=== PATIENT | male | born 1945 | race Caucasian/White ===

== ENCOUNTER 2024-12-01 10:23 | Emergency (ER) | payer OTHER, SELFPAY ==
[2024-12-01] VITALS (8 sets, daily range): BP systolic 148–197; BP diastolic 80–92; BMI 24.6
[2024-12-01 12:30] LABS: Hematocrit 44.5 % (39.0-52.0); Hemoglobin 15.3 g/dL (13.0-18.0); Mean Corp Hgb Conc. 34.4 g/dL (33.0-37.0); Mean Corpuscular Volume 92.5 fL (80.0-94.0); Nucleated Red Blood Cells % 0 % (-); Platelet Count 274 10^3/uL (130-400); Red Cell Dist. Width 12.9 % (11.5-14.5)
[2024-12-01 12:43] LABS: ALT (SGPT) 24 U/L (0-50); AST (SGOT) 27 U/L (17-59); Albumin 4.2 g/dl (3.5-5.0); Alkaline Phosphatase 94 U/L (38-126); Blood Urea Nitrogen 11 mg/dl (9-20); Calcium 8.8 mg/dl (8.4-10.2); Carbon Dioxide 29 mmol/L (22-30); Chloride 107 mmol/L (98-107); Estimated Creatinine Clearance 101 ml/min; Glucose 102 mg/dl (70-99); Potassium 4.3 mmol/L (3.5-5.1); Sodium 141 mmol/L (135-145); Total Protein 7.3 g/dl (6.3-8.2); eGFR > 60.00
[2024-12-01 12:54] LABS: Troponin I < 0.012 ng/ml
--- NOTE | 2024-12-01 13:29 | ED.GENMED ---
History of Present Illness
General
Chief Complaint: Headache
Time Seen by Provider: 12/01/24 11:01
History of Present Illness
History of Present Illness:
See MDM
Past History
Past History
ED Past Medical History: Hypercholesterolemia
ED Past Surgical History: Other (hernia)
Social History
Tobacco: Former smoker
Phy Exam
Physical Exam
Physical Exam:
GENERAL: Alert , in no apparent distress, initially was a little agitated when he first got here but then was calm and cooperative, no tremors
HEAD: NCAT
Mild frontal sinus pressure
EYE: pupils equal and reactive, no nystagmus, no photophobia
NECK: Supple,full rom, nontender
ENT: o/p clr, mmm.
CARDIAC: Regular rate and rhythm . no edema
LUNGS: Clear breath sounds bilaterally, no acute respiratory distress, no wheezes/rales/rhonchi
ABDOMEN: Soft, without focal tenderness, no r/g, no cvat
NEUROLOGICAL: Alert and orientedx 4, cn intact, no facial asymmetry, 5/5 strength in UE/LE, sensation intact, romberg neg, ambulates without assistance, neg pronator drift
SKIN: Warm and dry, skin intact.
MUSCULOSKELETAL: No edema, well perfused.
PSYCH: Normal and appropriate interaction.
Course
Orders/Labs/Results
Orders:
Orders
12/01/24 11:32
Electrocardiogram (*1) Urgent
Reason for Study: Hypertension, Benign
CT Head W/o Iv Contrast Urgent
Comment:
Reason For Exam: headache, elev bp
CT Sinuses W/o Iv Contrast Urgent
Comment:
Reason For Exam: headache, sinus pressure 1 mo
EKG- Treatment ONCE
12/01/24 12:17
Complete Blood Count/With Diff Urgent
Comprehensive Metabolic Panel Urgent
Troponin I Urgent
12/01/24 13:24
Amoxicillin 875 mg/Clav 125 mg [Augmentin 875 mg/125 mg] 1 tablet PO NOW STA
Abnormal Lab Results
12/01/24
12:17
MCH 31.8 H pg
(27.0-31.0)
Creatinine 0.6 L mg/dL
(0.7-1.3)
Glucose 102 H mg/dl
(70-99)
12/01/24 12:17
12/01/24 12:17
Vital Signs
Initial and Last Documented VS:
Initial Vital Signs
BP
160/80
12/01/24 10:35
Last Documented Vital Signs
Temp Pulse Resp BP Pulse Ox
37.1 C 48 16 163/85 99
12/01/24 13:42 12/01/24 13:42 12/01/24 13:42 12/01/24 13:42 12/01/24 13:42
MDM/Problems Addressed
Differential Diagnosis Includes:
see MDM
MDM/Problems Addressed:
Note:
CHIEF COMPLAINT(S)
Headache for about a month.
HISTORY OF PRESENT ILLNESS
The patient is a 79-year-old male here from work after coworker thought pt didn't look well.
pt says he is totally shocked by this and is unaware how he could have appeared not to be well.
background: constant headache for the past month, primarily located in the frontal region. The headache has not impaired his ability to work or perform daily activities. He mentions having a tooth extracted recently, which his dentist suspected
might have been contributing to sinus pressure. Despite the extraction, the headache has persisted. The patient describes the headache intensity as mild, rating it a 4 out of 10. He denies any congestion or sinus drainage. He underwent X-rays as an
outpatient at the recommendation of Dr. Lugo to identify the source of his headache, but a computed tomography scan was not performed at that time.
TODAY: The patient recounts an incident at work where a coworker suggested he did not look well, although he felt fine. he had just been sitting at a meeting but got up when he realized he didn't need to be there, walked to the back of the
auditorium when someone he doesn't know stopped him. he said he didn't feel bad, wasn't sweaty, sob, walking funny etc.
they insisted on calling EMS.
for ems His blood pressure was noted to be elevated at that moment, reaching about 200 systolic, which he attributes to being upset. 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 Although he
reports a slight hoarseness in his voice, he attributes it to his morning routine.
pt had tooth extraction yesterday
feelign well
does admit to 2 beers las tnight
denies alcohol intox or withdrawal
ADDITIONAL HISTORY OBTAINED FROM SOURCES OTHER THAN THE PATIENT
The patient independently recounts his experience without any supplemental information provided by family, EMS, or other external sources.
CHRONIC MEDICAL CONDITIONS SIGNIFICANTLY AFFECTING CARE
Hypertension, typically well-controlled with medication.
Hyperlipidemia, managed with atorvastatin.
SOCIAL DETERMINANTS AFFECTING HEALTH
The patient lives with his son and reports occasional alcohol consumption, having two beers the night before during a social activity.
MEDICATIONS
Atorvastatin for hyperlipidemia.
REVIEW OF SYSTEMS
- Neurological: Persistent headache for about a month.
- General: Denies feeling unwell despite coworkers observations; had slightly elevated blood pressure likely due to situational stress.
- Upper Respiratory: Slight hoarseness of voice attributed to morning routine.
- Social: Occasional alcohol consumption.
PHYSICAL EXAM
- Neurological Exam: Normal. The patient had normal cranial nerve examination, including eye movements, facial symmetry, tongue movement, and shoulder shrug.
- Nursing notes reviewed and vital signs reviewed.
PROBLEM LIST
Acute:
- Headache, persistent for about a month.
- Elevated blood pressure during stressful situation at work.
Chronic:
- Hypertension.
- Hyperlipidemia.
PLAN
- Obtain a computed tomography (CT) scan of the head to rule out any intracranial cause of the headache.
- Repeat blood work to ensure other metabolic causes are not contributing to the patients symptoms.
- Monitor and manage blood pressure during the visit to avoid any acute exacerbations.
DIFFERENTIAL DIAGNOSIS
The Differential Diagnosis includes, in no particular order and is not limited to:
- Chronic Tension-Type Headache
- Secondary headache due to hypertension
- Sinusitis
- Temporal arteritis
- Medication overuse headache
- Cervicogenic headache
- Intracranial mass lesion
- Subdural hematoma
- Dehydration-related headache
- Alcohol-related headache
CARE-UPDATE
12/01/24 - 13:16
The patient reports feeling good overall. Recent CAT scan indicates a sinus infection, but no significant issues with the brain. The patient experienced transient confusion, though they do not currently feel disoriented. They previously received
amoxicillin from their dentist for a dental infection 2 weeks ago. The plan includes prescribing Augmentin, as it is stronger than the previously taken amoxicillin. The patient is to be discharged shortly, and their physician, Dr. Juan Lugo, will
be informed of this visit and the current treatment plan.
*Pulse Oximetry
SaO2: 98
Oxygen Mode of Delivery: Room air
Patient hypoxic: no (99)
*Critical Care Note
Total Time (30-74mins, 75-104mins- exclusive of procedures): Not Applicable
ED Attending Note
-
Portions of this chart may have been created with voice recognition software.� Occasional wrong word or��sound alike� substitutions may have occurred due to the inherent limitations of voice recognition software.
Discharge Plan
Departure
Patient Disposition: Home (Routine Discharge)
Date of Disposition: 12/01/24
Time of Disposition: 13:17
Patient with high blood pressure during this ER visit?: Yes
Condition: Fair
Covid-19: Not Applicable
Discharge Problem:
Sinusitis
Instructions: Sinusitis in adults - ED (DC), BLOOD PRESSURE
Prescriptions:
New
amoxicillin-pot clavulanate 875-125 mg tablet
1 tab PO BID Qty: 20 0RF
No Action
Cefuroxime
500 mg PO BID
Simvastatin
20 mg PO HS
prednisone 50 MG tablet
50 mg PO DAILY Qty: 5 0RF
Referrals:
Juan Lugo MD [Family Provider, [facility]]
Activity Restrictions/Additional Instructions:
You have some inflammation of your sinuses so were going to treat you with Augmentin twice a day. This can cause diarrhea so try to use a probiotic or eat yogurt while you are on it. Take Tylenol for your headache as needed. Follow-up with
Parish. I made him aware of this visit that you had here and the testing that you had. Your blood pressure was mildly elevated but it did improve. Return for any worsening concerns or additional symptoms
Interventions
Interventions:
*Risk Screen - Suicide Last Done: 12/01/24 10:54
*General Assessment Last Done: 12/01/24 10:54
*Neglect/Abuse Screening Last Done: 12/01/24 10:54
*ED- Fall Risk Assessment Last Done: 12/01/24 10:54
*ED COVID-19 Vaccine History Last Done: 12/01/24 10:54
*Nursing Disposition Last Done: 12/01/24 13:42
ED- Neurological Assessment Last Done: 12/01/24 11:02
Discharge Date and Time
Discharge Date/Time: 12/01/24 13:44
Print Language: FRENCH
[2024-12-01] MEDS: AUGMENTIN 875 MG/125 MG 1 TABLET PO (13:39)
== END 2024-12-01 13:44 | disposition home or self-care (01) ==
LOC: EMR 10:23
PROVIDERS: Physician Assistant; EMERGENCY PHYSICIAN Student in an Organized Health Care Education/Training Program; FAMILY PHYSICIAN Family Medicine
DX: J32.9 Chronic sinusitis, unspecified (principal); I10 Essential (primary) hypertension; E78.00 Pure hypercholesterolemia, unspecified; Z87.891 Personal history of nicotine dependence
CPT/HCPCS: 99284; 70450; 70486; 80053; 84484; 85025; 93005